=== PATIENT | male | born 1945 | race Caucasian/White ===

== ENCOUNTER 2024-12-28 03:50 | Emergency (ER) | payer OTHER, SELFPAY ==
[2024-12-28 03:52] VITALS: BMI 31.7
[2024-12-28 04:25] VITALS: BP 124/79; PULSE 77; RESP 20; TEMP 36.8; O2SAT 94
--- NOTE | 2024-12-28 04:33 | PD.EDSOB ---
ED SOB =RME/HPI General Chief Complaint: Shortness of Breath/Dyspnea Stated Complaint: DIFFICULTY BREATHING Time Seen by Provider: 12/28/24 04:33 Arrival date/time: 12/28/24 03:50 RME / HPI RME / HPI Narrative: Dr. Iqbal?s Main ED Evaluation: 79yo male with a history of COPD, HTN, aFib presents to the ED for complaints of cough and shortness of breath. Patient states he started having a productive cough with clear phlegm last night at 2300, reporting it progressed throughout the night. Patient states he started feeling short of breath and was unable to lay down, so he came in for evaluation. Patient is on 2.5L/NC and BIPAP at night. Patient denies any fever, chills, N/V/D or any other associated symptoms. Denies any recent sick contacts. Patient does use his albuterol inhaler daily (provided some relief), and has a nebulizer at home. NKA. Related Data Home Medications ?Medication ?Instructions ?Recorded ?Confirmed flunisolide 25 mcg (0.025 %) nasal 2 spry NASAL BID ##0 11/23/13 02/21/20 spray gabapentin 300 mg capsule 300 mg PO BID 11/06/19 02/21/20 latanoprost 0.005 % eye drops 1 drp ophthalmic (eye) QPM 11/06/19 02/21/20 lisinopril 20 1 tab PO QDAY 11/06/19 02/21/20 mg-hydrochlorothiazide 12.5 mg tablet meloxicam 15 mg tablet 15 mg PO QDAY 11/06/19 02/21/20 methocarbamol 500 mg tablet 500 mg PO TID 11/06/19 02/21/20 montelukast 10 mg tablet 10 mg PO QPM 11/06/19 02/21/20 polyvinyl alcohol 1.4 % eye drops 1 drp ophthalmic (eye) QID 11/06/19 02/21/20 tiotropium bromide 18 mcg capsule 1 cap inhalation QDAY 11/06/19 02/21/20 with inhalation device budesonide-formoterol HFA 80 2 puff inhalation BID 02/21/20 02/21/20 mcg-4.5 mcg/actuation aerosol inhaler (Symbicort) gabapentin 300 mg capsule 300 mg PO BID 02/21/20 02/21/20 lisinopril 20 1 tab PO QDAY 02/21/20 02/21/20 mg-hydrochlorothiazide 12.5 mg tablet montelukast 10 mg tablet 10 mg PO QPM 02/21/20 02/21/20 Previous Rx's ?Medication ?Instructions ?Recorded albuterol sulfate 90 mcg/actuation 2 puff inhalation Q6HR PRN 12/27/16 aerosol inhaler (ProAir HFA) SHORTNESS OF BREATH #2 inhalations rivaroxaban 20 mg tablet 20 mg PO QDAY #0 tabs 02/21/20 doxycycline monohydrate 100 mg 100 mg PO BID #10 caps 12/28/24 capsule prednisone 50 mg tablet 50 mg PO QDAY #4 tabs 12/28/24 Allergies Allergy/AdvReac Type Severity Reaction Status Date / Time No Known Allergies Allergy Verified 12/28/24 03:56 Review of Systems Review of Systems Systems Reviewed: All systems reviewed, normal except as documented Past Medical History Past Medical History NEUROLOGIC: Negative Neurological Disorders or Seizures CARDIAC: Positive Cardiac Disorders, Atrial Fibrillation, Angina and Hypertension; Negative Congestive Heart Failure RESPIRATORY: Positive Chronic Obstructive Pulmonary Disease (COPD) (use CPAP) GASTROINTESTINAL: Negative Gastrointestinal Disorders GENITOURINARY: Negative Genitourinary Disorders or Renal Disease MUSCULOSKELETAL: Negative Musculoskeletal Disorders ENT: Positive Cataracts ENDOCRINE: Negative Endocrine Disorders, Diabetes Mellitus Type 1 or Diabetes Mellitus Type 2 HEMATOLOGIC: Negative Blood Disorders PSYCHO/SOCIAL: Positive Depression OTHER HISTORY: Positive Chicken Pox, Measles and Mumps; Negative Blood Transfusions, Anesthesia Reactions or Cancer Family History FAMILY HISTORY: Negative Family Cancer Surgical History SURGICAL: Positive Eye Surgery (Right eye) and Joint Replacement; Negative Cardiac Surgery, Endocrine Surgery, Ear Surgery, Nose Surgery or Abdominal Surgery Social History SMOKING STATUS: Current some day smoker SUBSTANCE USE: does not use ED Exam Narrative Physical exam: GENERAL APPEARANCE: AxOx4, generally well-appearing, no acute distress. HEENT: NC, AT. MMM. EOMI, clear conjunctiva, oropharynx clear. NECK: Supple without lymphadenopathy. No stiffness or restricted ROM. HEART: Normal rate and regular rhythm, normal S1/S1, no m/r/g LUNGS: CTAB, moving air well. Prolonged expiratory phase when talking. No crackles or wheezes are heard. ABDOMEN: Soft, nontender, nondistended with good bowel sounds heard. BACK: No midline C/T/L spine pain or deformity, No CVAT, no obvious deformity. EXTREMITIES: Without cyanosis, clubbing or edema. MUSCULOSKELETAL: FROM of all major joints, no chest tenderness NEUROLOGICAL: Grossly nonfocal. Alert and oriented, moving all 4 extremities. CN not formally tested but appear grossly intact. Observed to ambulate with normal gait. Skin: Warm and dry without any rash. Course Course Course Narrative: CXR is ordered for determining the etiology of shortness of breath. Quality Measures none Orders Category Date Time Status EKG (ED ONLY) *Do not use* NOW Care 12/28/24 04:34 Completed EKG (ED Only) Stat Exams 12/28/24 04:34 Draft XR chest 2V Stat Exams 12/28/24 04:35 Taken CBC Stat Lab 12/28/24 05:26 Ordered CMP [Comprehensive Metabolic Panel] Stat Lab 12/28/24 05:26 Ordered Troponin I Stat Lab 12/28/24 05:26 Ordered Albuterol/Ipratr Rt Inga [Duoneb Rt Inga] Med 12/28/24 05:01 Discontinued 3 ml INH X1 ONE Albuterol/Ipratr Rt Inga [Duoneb Rt Inga] Med 12/28/24 05:54 Discontinued 3 ml INH X1 ONE predniSONE Med 12/28/24 04:34 Discontinued 60 mg PO X1 ONE Reevaluation(s) Reevaluation #1: Patient's breathing has improved and does not have a prolonged expiratory phase when he talks after receiving his duoneb. Additional breathing treatment ordered. Time: 05:39 Vital Signs Vital signs: Vital Signs Temperature 98.3 F 12/28/24 04:25 Pulse Rate 77 12/28/24 04:25 Respiratory Rate 20 12/28/24 04:25 Blood Pressure 124/79 12/28/24 04:25 Pulse Oximetry (%) 94 L 12/28/24 04:25 Oxygen Delivery Method Room Air 12/28/24 04:25 Shortness of Breath / Dyspnea MDM Narrative MDM Narrative:: Scribe Attestation: 12/28/24 Yamini Frederick am scribing for and in the presence of Dr. Iqbal. Patient data External records reviewed:: [facility] previous records (Per chart review, patient was seen here on 11/23/19 for aFib.) Clinical information provided by:: patient Social determinants that could affect healthcare access:: none Patient has the following chronic illnesses:: COPD, HTN, aFib How is presenting disease/condition affected by chronic disease/condition?: exacerbated by Evaluation data The following diagnostics were reviewed and interpreted by me:: lab results, radiology exam(s) and EKG tracing(s) Lab and/or radiology exams considered but not ordered:: none Interpretation Summary: Labs are pending at the time of sign out. CXR is shows atelectasis versus infiltrate at the right lower lung field, no pneumothorax or bony abnormalities, according to my interpretation. EKG done at 0443, NSR, rate of 73, normal intervals, normal axis, no acute ST or T wave changes, according to my interpretation. Medications / Prescriptions Medications or Prescriptions considered but not ordered:: none Medication administrations:: Medication Administration History Discontinued Medications Albuterol/Ipratropium (Albuterol/Ipratropium (Duoneb) Rt Inga 3 Ml Nebu) 3 ml INH X1 ONE Stop: 12/28/24 05:02 Last Admin: 12/28/24 05:13 Dose: 3 ml Documented By: CODIE Albuterol/Ipratropium (Albuterol/Ipratropium (Duoneb) Rt Inga 3 Ml Nebu) 3 ml INH X1 ONE Stop: 12/28/24 05:55 Prednisone (Prednisone 20 Mg Tablet) 60 mg PO X1 ONE Stop: 12/28/24 04:35 Last Admin: 12/28/24 04:48 Dose: 60 mg Documented By: LEONARDO see above Consultations Consultation(s) initiated? (list below): No Diagnosis Shortness of Breath Differential Diagnosis: congestive heart failure, community acquired pneumonia, asthma with exacerbation and other (COPD exacerbation) Most likely diagnosis given after review of the tests above:: pending at signout Admission Indicated Admission indicated?: not indicated Admission Request Was there a request for admission?: No Disposition Plan Disposition Plan: other (specify) (Signed out to Dr. Granger at 0600 pending labs.) Discharge Plan Plan Patient Disposition: HOME (Self Care) Prescriptions/Referrals Prescriptions/Med Rec: New prednisone 50 mg tablet 50 mg PO QDAY Qty: 4 0RF doxycycline monohydrate 100 mg capsule 100 mg PO BID Qty: 10 0RF No Action flunisolide 25 ML spray,non-aerosol 2 spry NASAL BID Qty: 0 albuterol sulfate [ProAir HFA] 8.5 GM HFA aerosol inhaler 2 puff Inhalation Q6HR PRN (Reason: SHORTNESS OF BREATH) Qty: 2 0RF latanoprost 0.005 % Drops 1 drp OPHTHALMIC (EYE) QPM methocarbamol 500 mg Tablet 500 mg PO TID meloxicam 15 mg Tablet 15 mg PO QDAY polyvinyl alcohol 1.4 % Drops 1 drp OPHTHALMIC (EYE) QID gabapentin 300 mg Capsule 300 mg PO BID montelukast 10 mg Tablet 10 mg PO QPM tiotropium bromide 18 mcg Capsule, W/Inhalation Device 1 cap INHALATION QDAY lisinopril-hydrochlorothiazide 20-12.5 mg Tablet 1 tab PO QDAY lisinopril-hydrochlorothiazide 20-12.5 mg Tablet 1 tab PO QDAY gabapentin 300 mg Capsule 300 mg PO BID montelukast 10 mg Tablet 10 mg PO QPM budesonide-formoterol [Symbicort] 80-4.5 mcg/actuation Hfa Aerosol Inhaler 2 puff INHALATION BID rivaroxaban 20 mg Tablet 20 mg PO QDAY Qty: 0 0RF Rx Instructions: resume medication on 02/23/2020 Problem List Clinical Impression: Bronchitis, COPD with exacerbation Patient/Caregiver Discharge Instructions Education Materials: ED Bronchitis with Wheezing (Adult), ED COPD Flare Additional Instructions: Follow-up your primary care doctor in 3 to 5 days for recheck. You can return to the emergency department sooner if symptoms worsen or if you notice any new, concerning issues. Print Language: Persian Stand Alone Forms: Margarita Award Info., Patient Portal Info Letter
--- NOTE | 2024-12-28 04:34 | EKG_ITS ---
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
--- NOTE | 2024-12-28 04:35 | XR_ITS ---
Examination: PA lateral chest 2 views TECHNIQUE: Upright PA and lateral chest 2 views Exam date and time: December 28, 2024 0529 hours Comparison November 23, 2027 INDICATIONS: Shortness of breath today. FINDINGS: Atelectasis versus pneumonia right base Reduced inspiratory effort Normal heart size Mild vascular congestion IMPRESSION: Atelectasis versus pneumonia right base, clinical correlation advised.
[2024-12-28] MEDS: predniSONE 20 MG TABLET 60 MG PO (04:48)
--- NOTE | 2024-12-28 04:50 | PC.NURSE ---
PATIENT DROPPED PREDNISONE MEDICATION ON FLOOR. MEDICATION PULLED FROM [facility] AGAIN.
[2024-12-28] MEDS: ALBUTEROL/IPRATROPIUM (Duoneb) RT SOL 3 ML NEBU INH ×2 (05:13→06:18)
[2024-12-28 05:15] VITALS: PULSE 86; RESP 18; O2SAT 99
[2024-12-28 06:18] VITALS: PULSE 70; RESP 24; O2SAT 99
[2024-12-28 06:25] LABS: Basophils # (Auto) 0.1 Thou/mm3 (0.0-0.2); Basophils % (Auto) 1 % (0-2.5); Eosinophils # (Auto) 0.4 Thou/mm3 (0.0-0.5); Eosinophils % (Auto) 6 % (0-10); Hematocrit 41.2 % (41.0-53.0); Hemoglobin 13.7 g/dL (13.5-16.0); Immature Granulocytes % (Auto) 0 % (0-0); Immature Granulocytes Auto 0.02 Thou/mm3 (0.00-0.00); Lymphocytes # (Auto) 1.3 Thou/mm3 (1.0-4.8); Lymphocytes % (Auto) 18 % (10-50); Mean Corpuscular HGB Conc 33.3 g/dl (31.0-37.0); Mean Corpuscular Hemoglobin 32.4 pg (25.0-35.0); Mean Corpuscular Volume 97 fL (80-100); Monocytes # (Auto) 0.5 Thou/mm3 (0.0-0.8); Monocytes % (Auto) 7 % (0-12); Neutrophils # (Auto) 4.8 Thou/mm3 (1.8-7.7); Neutrophils % (Auto) 68 % (37-80); Nucleated Red Blood Cell % 0 /100 WBC (0); Platelet Count 198 Thou/mm3 (140-440); RDW Standard Deviation 46.6 fL (35.1-43.9); Red Blood Count 4.23 Miln/mm3 (4.50-5.90); White Blood Count 7.2 Thou/mm3 (3.8-10.6)
[2024-12-28 06:40] LABS: Alanine Aminotransferase 12 U/L (10-49); Albumin, Serum 4.3 gm/dL (3.4-4.8); Albumin/Globulin Ratio 1.7 (1.2-2.2); Alkaline Phosphatase 50 U/L (46-116); Anion Gap 7 (7-16); Aspartate Amino Transferase 23 U/L (0-34); BUN/Creatinine Ratio 21 Ratio (12-20); Bilirubin,Total 0.5 mg/dL (0.3-1.2); Blood Urea Nitrogen 25 mg/dL (9-23); Calcium 8.9 mg/dL (8.3-10.6); Calcium (Corrected) 8.9 mg/dL (8.5-10.1); Carbon Dioxide 28.2 mMol/L (20.0-31.0); Chloride 110 mMol/L (98-107); Creatinine (Component) 1.2 mg/dL (0.6-1.3); Estimated Creatinine Clearance 59.4 mL/min (>60); Globulin 2.5 gm/dL (2.3-3.5); Glucose 117 mg/dL (74-106); Osmolality,Calculated 294 (275-295); Potassium 4.2 mMol/L (3.4-5.1); Sodium 145 mMol/L (136-145); Total Protein 6.8 gm/dL (5.7-8.2); Troponin I < 0.020 ng/mL (0.0-0.045); eGFR > 60 See Note
--- NOTE | 2024-12-28 07:37 | PD.EDADDENDU ---
Emergency Room Addendum Addendum Narrative: 0600: Care assumed from Dr. Iqbal, the previous shift emergency physician. Past medical, surgical, social and family history reviewed. Vitals and home medications reviewed. I will assume the care of the patient at this time, pending labs and final disposition. Please refer to the emergency department record for history and examination from initial visit.?The following addendum documentation note is intended to reflect any pending information, findings, or radiology results not included in the patient?s initial chart. Nursing notes reviewed by me. Vital signs reviewed by me. Aleja Kothari medical records reviewed by me. 0835: We reviewed all the results, analysis, and treatment plans. Patient is amenable to discharge. Strict return precautions were outlined. Patient was discharged in stable condition.
[2024-12-28 08:16] VITALS: BP 122/77; PULSE 93; RESP 22; TEMP 36.4; O2SAT 96
[2024-12-28 09:14] VITALS: BP 126/55; PULSE 98; RESP 18; TEMP 36.9; O2SAT 95
== END 2024-12-28 09:29 | disposition home or self-care (01) ==
PROVIDERS: Emergency Provider Emergency Medicine
DX: J44.1 Chronic obstructive pulmonary disease with (acute) exacerbation (principal); I10 Essential (primary) hypertension; I48.91 Unspecified atrial fibrillation
CPT/HCPCS: 36415; 71046; 80053; 84484; 85025; 93005; 94640; 99284; A9270; J7512

== ENCOUNTER 2025-02-01 15:06 | Emergency (ER) | payer OTHER, SELFPAY ==
[2025-02-01 15:07] VITALS: PULSE 124; RESP 32; O2SAT 80
[2025-02-01 15:11] VITALS: BMI 31.7
--- NOTE | 2025-02-01 15:11 | PD.EDADULT ---
ED General RME/HPI General Chief complaint: Shortness of Breath/Dyspnea Stated complaint: SOB Time Seen by Provider: 02/01/25 15:11 Arrival date/time: 02/01/25 15:06 Limitations: no limitations RME / HPI RME / HPI narrative: DR. NATION MAIN ED EVALUATION: 79 year old male with past medical history significant for COPD presents to the Emergency Department BIB from home as a STAT breather with complaint of shortness of breath. Per EMS, patient was satting 80% on 2 L/min. No other symptoms reported at this time. Related Data Home Medications ?Medication ?Instructions ?Recorded ?Confirmed flunisolide 25 mcg (0.025 %) nasal 2 spry NASAL BID ##0 11/23/13 02/21/20 spray gabapentin 300 mg capsule 300 mg PO BID 11/06/19 02/21/20 latanoprost 0.005 % eye drops 1 drp ophthalmic (eye) QPM 11/06/19 02/21/20 lisinopril 20 1 tab PO QDAY 11/06/19 02/21/20 mg-hydrochlorothiazide 12.5 mg tablet meloxicam 15 mg tablet 15 mg PO QDAY 11/06/19 02/21/20 methocarbamol 500 mg tablet 500 mg PO TID 11/06/19 02/21/20 montelukast 10 mg tablet 10 mg PO QPM 11/06/19 02/21/20 polyvinyl alcohol 1.4 % eye drops 1 drp ophthalmic (eye) QID 11/06/19 02/21/20 tiotropium bromide 18 mcg capsule 1 cap inhalation QDAY 11/06/19 02/21/20 with inhalation device budesonide-formoterol HFA 80 2 puff inhalation BID 02/21/20 02/21/20 mcg-4.5 mcg/actuation aerosol inhaler (Symbicort) gabapentin 300 mg capsule 300 mg PO BID 02/21/20 02/21/20 lisinopril 20 1 tab PO QDAY 02/21/20 02/21/20 mg-hydrochlorothiazide 12.5 mg tablet montelukast 10 mg tablet 10 mg PO QPM 02/21/20 02/21/20 Previous Rx's ?Medication ?Instructions ?Recorded albuterol sulfate 90 mcg/actuation 2 puff inhalation Q6HR PRN 12/27/16 aerosol inhaler (ProAir HFA) SHORTNESS OF BREATH #2 inhalations rivaroxaban 20 mg tablet 20 mg PO QDAY #0 tabs 02/21/20 doxycycline monohydrate 100 mg 100 mg PO BID #10 caps 12/28/24 capsule prednisone 50 mg tablet 50 mg PO QDAY #4 tabs 12/28/24 Allergies Allergy/AdvReac Type Severity Reaction Status Date / Time No Known Allergies Allergy Verified 02/01/25 15:11 Review of Systems Review of Systems Systems Reviewed: All systems reviewed, normal except as documented Past Medical History Past Medical History CARDIAC: Positive Cardiac Disorders, Atrial Fibrillation, Angina and Hypertension RESPIRATORY: Positive Chronic Obstructive Pulmonary Disease (COPD) ENT: Positive Cataracts PSYCHO/SOCIAL: Positive Depression OTHER HISTORY: Positive Chicken Pox, Measles and Mumps Surgical History SURGICAL: Positive Eye Surgery and Joint Replacement Social History SMOKING STATUS: Never smoker SUBSTANCE USE: does not use ALCOHOL: Never ED Exam General Limitations: Present no limitations General appearance: Present alert Head Head exam: Present atraumatic, normocephalic and normal inspection Eye Eye exam: Present normal appearance, PERRL and EOMI ENT ENT exam: Present normal exam, normal oropharynx and mucous membranes moist Neck Neck exam: Present normal inspection, full ROM and trachea midline Chest Chest inspection: Present normal inspection and symmetric chest wall rise Respiratory Respiratory exam: Present respiratory distress, wheezes (expiratory) and prolonged expiratory phase Cardiovascular Cardiovascular exam: Present regular rate, normal rhythm and normal heart sounds Abdominal Exam Abdominal exam: Present soft and normal bowel sounds Extremities Exam Extremities exam: Present normal inspection and full ROM Back Exam Back exam: Present normal inspection and full ROM Neurological Exam Neurological exam: Present alert, oriented X3 and CN II-XII intact Psychiatric Psychiatric exam: Present normal affect and normal mood Skin Skin exam: Present warm, dry, intact and normal color Course Course Course Narrative: See above. Patient is back to his baseline and is requesting discharge Quality Measures none Orders Category Date Time Status Software Validation Technician STAT Care 02/01/25 15:14 Active Continuous Pulse Oximetry ONCE Care 02/01/25 15:14 Active EKG (ED ONLY) *Do not use* NOW Care 02/01/25 15:14 Completed EKG (ED ONLY) *Do not use* NOW Care 02/01/25 17:13 Completed Insert IV STAT Care 02/01/25 15:14 Active EKG (ED Only) Stat Exams 02/01/25 15:14 Draft EKG (ED Only) Stat Exams 02/01/25 17:13 Draft XR chest 1V portable Stat Exams 02/01/25 15:14 Completed B-Type Natriuretic Peptide Stat Lab 02/01/25 15:15 Completed CBC Stat Lab 02/01/25 15:15 Completed Comprehensive Metabolic Panel Stat Lab 02/01/25 15:15 Completed Lipase Stat Lab 02/01/25 15:15 Completed Magnesium Stat Lab 02/01/25 15:15 Completed Troponin I Stat Lab 02/01/25 15:15 Completed VBG [Venous Blood Gas] Stat Lab 02/01/25 15:15 Completed ALBUTEROL RT 3ml [Proventil Rt 3ml] Med 02/01/25 16:45 Discontinued 5 mg INH X1 ONE Magnesium Sulfate 1 gm Ivpb [Magnesium Sulfate Ivpb] Med 02/01/25 16:18 Discontinued 1 gm in 100 ml IV X1 MethylPREDNISolone.* [SoluMEDROL Inj] Med 02/01/25 16:16 Discontinued 125 mg IVP X1 ONE Oxygen Delivery NOW RT 02/01/25 15:14 Active Vital Signs Vital signs: Vital Signs Pulse Rate 113 H 02/01/25 15:20 Respiratory Rate 28 H 02/01/25 15:20 Pulse Oximetry (%) 97 02/01/25 15:20 Oxygen Flow Rate 6 02/01/25 15:20 Critical Care Time Critical Care Time Critical Care Time: Yes Total Critical Care Time (min.): 39 Attestation: See MDM Discharge Plan Plan Patient Disposition: HOME (Self Care) Patient condition on transfer: Stable Prescriptions/Referrals Prescriptions/Med Rec: No Action flunisolide 25 ML spray,non-aerosol 2 spry NASAL BID Qty: 0 albuterol sulfate [ProAir HFA] 8.5 GM HFA aerosol inhaler 2 puff Inhalation Q6HR PRN (Reason: SHORTNESS OF BREATH) Qty: 2 0RF latanoprost 0.005 % Drops 1 drp OPHTHALMIC (EYE) QPM methocarbamol 500 mg Tablet 500 mg PO TID meloxicam 15 mg Tablet 15 mg PO QDAY polyvinyl alcohol 1.4 % Drops 1 drp OPHTHALMIC (EYE) QID gabapentin 300 mg Capsule 300 mg PO BID montelukast 10 mg Tablet 10 mg PO QPM tiotropium bromide 18 mcg Capsule, W/Inhalation Device 1 cap INHALATION QDAY lisinopril-hydrochlorothiazide 20-12.5 mg Tablet 1 tab PO QDAY lisinopril-hydrochlorothiazide 20-12.5 mg Tablet 1 tab PO QDAY gabapentin 300 mg Capsule 300 mg PO BID montelukast 10 mg Tablet 10 mg PO QPM budesonide-formoterol [Symbicort] 80-4.5 mcg/actuation Hfa Aerosol Inhaler 2 puff INHALATION BID rivaroxaban 20 mg Tablet 20 mg PO QDAY Qty: 0 0RF Rx Instructions: resume medication on 02/23/2020 prednisone 50 mg tablet 50 mg PO QDAY Qty: 4 0RF doxycycline monohydrate 100 mg capsule 100 mg PO BID Qty: 10 0RF Referrals: No Primary/Family,Physician [Primary Care Provider] - In 1 week Problem List Clinical Impression: Acute bronchospasm Patient/Caregiver Discharge Instructions Discharge Activity: activity as tolerated Education Materials: ED Bronchospasm (Adult) Print Language: Irish Stand Alone Forms: Margarita Award Info., Patient Portal Info Letter MDM Narrative MDM hospital course: After albuterol, magnesium and Solu-Medrol, patient feels much better and is requesting to be discharged home. His prolonged respiratory phase and wheezing has resolved. Does not need any supplemental oxygen. His initial EKG was abnormal secondary to his condition. The repeat EKG showed normal sinus rhythm at 82 bpm. Patient does not have atrial fibrillation Clinical Information Provided by patient and EMS [facility] Meds/Rx Considered, not Ordered None Labs/Rad/Tests considered, not Ordered None Chronic Illness/Social Conditions which may negatively complicate care or outcome(s)-explain: COPD Medication Administration(s) Medication Administration History Discontinued Medications Albuterol (Albuterol Rt 2.5 Mg/3 Ml Nebu) 5 mg INH X1 ONE Stop: 02/01/25 16:46 Last Admin: 02/01/25 17:43 Dose: Not Given Documented By: TYLER Non-Admin Reason: Duplicate Medication on eMAR Magnesium Sulfate/Dextrose (Magnesium Sulfate Ivpb) 1 gm in 100 mls @ 100 mls/hr IV X1 ONE Stop: 02/01/25 17:17 Last Admin: 02/01/25 17:05 Dose: 100 mls/hr Documented By: EASTON Methylprednisolone Sodium Succinate (Methylprednisolone Sod Succ 62.5 Mg/Ml 2ml Vial) 125 mg IVP X1 ONE Stop: 02/01/25 16:17 Last Admin: 02/01/25 17:04 Dose: 125 mg Documented By: EASTON Diagnosis Differential diagnosis: COPD exacerbation, asthma, PE
--- NOTE | 2025-02-01 15:14 | EKG_ITS ---
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
--- NOTE | 2025-02-01 15:14 | XR_ITS ---
Examination: AP chest single view TECHNIQUE: AP portable semiupright chest single view Date and time: February 01, 2025 1543 hours Comparison December 28, 2024 INDICATIONS: COPD diagnosis with chest pain shortness of breath today. FINDINGS: Opacity right base consistent with pneumonia Mild to moderate right pleural fluid No significant cardiac enlargement Mild pulmonary vascular congestion. No pulmonary edema Prominent osteopenia Old lower left rib fractures IMPRESSION: Right base pneumonia Mild to moderate right pleural fluid
[2025-02-01 15:20] VITALS: PULSE 113; RESP 28; O2SAT 97
[2025-02-01 15:22] VITALS: PULSE 112
[2025-02-01 15:23] VITALS: BP 154/113; PULSE 110; RESP 18; RESP 20; RESP 80; O2SAT 94; O2SAT 95
[2025-02-01 15:39] LABS: Base Excess, Venous 4 (-3-3); O2 Saturation, Venous 95 % (96-97); PCO2, Venous 49 mmHg (36-56); PO2, Venous 69 mmHg (15-58); pH, Venous 7.39 (7.33-7.66)
[2025-02-01 15:43] LABS: Basophils # (Auto) 0.1 Thou/mm3 (0.0-0.2); Basophils % (Auto) 1 % (0-2.5); Eosinophils # (Auto) 0.2 Thou/mm3 (0.0-0.5); Eosinophils % (Auto) 2 % (0-10); Hematocrit 41.7 % (41.0-53.0); Hemoglobin 14.6 g/dL (13.5-16.0); Immature Granulocytes % (Auto) 1 % (0-0); Immature Granulocytes Auto 0.09 Thou/mm3 (0.00-0.00); Lymphocytes # (Auto) 1.7 Thou/mm3 (1.0-4.8); Lymphocytes % (Auto) 16 % (10-50); Mean Corpuscular Hemoglobin 32.7 pg (25.0-35.0); Mean Corpuscular Volume 94 fL (80-100); Monocytes # (Auto) 0.6 Thou/mm3 (0.0-0.8); Monocytes % (Auto) 5 % (0-12); Neutrophils # (Auto) 8.1 Thou/mm3 (1.8-7.7); Neutrophils % (Auto) 76 % (37-80); Nucleated Red Blood Cell % 0 /100 WBC (0); Platelet Count 237 Thou/mm3 (140-440); RDW Standard Deviation 45.7 fL (35.1-43.9); Red Blood Count 4.46 Miln/mm3 (4.50-5.90); White Blood Count 10.7 Thou/mm3 (3.8-10.6)
[2025-02-01 16:03] LABS: Alanine Aminotransferase 21 U/L (10-49); Albumin, Serum 4.5 gm/dL (3.4-4.8); Alkaline Phosphatase 50 U/L (46-116); Anion Gap 8 (7-16); Aspartate Amino Transferase 26 U/L (0-34); BUN/Creatinine Ratio 26 Ratio (12-20); Bilirubin,Total 0.5 mg/dL (0.3-1.2); Blood Urea Nitrogen 31 mg/dL (9-23); Calcium 9.7 mg/dL (8.3-10.6); Calcium (Corrected) 9.7 mg/dL (8.5-10.1); Carbon Dioxide 28.9 mMol/L (20.0-31.0); Chloride 106 mMol/L (98-107); Creatinine (Component) 1.2 mg/dL (0.6-1.3); Estimated Creatinine Clearance 59.4 mL/min (>60); Globulin 2.3 gm/dL (2.3-3.5); Glucose 114 mg/dL (74-106); Lipase 33 U/L (12-53); Magnesium 1.9 mg/dL (1.6-2.6); Osmolality,Calculated 292 (275-295); Potassium 3.9 mMol/L (3.4-5.1); Sodium 143 mMol/L (136-145); Total Protein 6.8 gm/dL (5.7-8.2); Troponin I < 0.020 ng/mL (0.0-0.045); eGFR > 60 See Note
[2025-02-01 16:20] LABS: B-Type Natriuretic Peptide 82 pg/mL (0-100)
[2025-02-01 16:32] VITALS: PULSE 93
[2025-02-01 16:40] VITALS: PULSE 93; RESP 23; O2SAT 100
[2025-02-01] MEDS: MethylPREDNISolone SOD SUCC 62.5 MG/ML 2ML VIAL 125 MG IVP (17:04)
[2025-02-01] MEDS: Magnesium Sulfate 1 gm Ivpb 1 GM/100 ML BAG IV (17:05)
--- NOTE | 2025-02-01 17:13 | EKG_ITS ---
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
== END 2025-02-01 18:15 | disposition home or self-care (01) ==
PROVIDERS: Emergency Provider Emergency Medicine
DX: J98.01 Acute bronchospasm (principal); I44.0 Atrioventricular block, first degree; I48.91 Unspecified atrial fibrillation; J44.9 Chronic obstructive pulmonary disease, unspecified; I10 Essential (primary) hypertension; Z79.51 Long term (current) use of inhaled steroids; Z79.01 Long term (current) use of anticoagulants
CPT/HCPCS: 36415; 71045; 80053; 82803; 83690; 83735; 83880; 84484; 85025; 93005; 94640; 96365; 96375; 99284; J2919; J3475